=== PATIENT | female | born 1970 | race Caucasian/White ===

== ENCOUNTER 2020-12-04 17:24 | Emergency (ER) | payer OTHER ==
[~2020-12-04] VITALS: Ht 157.5 cm; Wt 65.9 kg
[2020-12-04 17:36] VITALS: TEMP 97.9
[2020-12-04] MEDS ORDERED: LIDODERM 5% PATC1 EA TP (18:17)
[2020-12-04] MEDS ORDERED: ROBAXIN 75750 MG/TAB PO (18:17)
[2020-12-04 18:45] VITALS: BP 140/77; PULSE 79
== END 2020-12-04 18:45 | disposition home or self-care (01) ==
LOC: COL.ER 17:24
DX: S16.1XXA Strain of muscle, fascia and tendon at neck level, initial encounter (principal); M54.12 Radiculopathy, cervical region; Z88.2 Allergy status to sulfonamides; V89.2XXA Person injured in unspecified motor-vehicle accident, traffic, initial encounter
CPT/HCPCS: J1885